=== PATIENT | female | born 2000 | race Caucasian/White ===

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

== ENCOUNTER → 2021-10-19 | Outpatient (CLI) | payer BC ==
--- NOTE | 2021-10-19 12:09 | US ---
EXAMINATION TYPE: US abdomen limited DATE OF EXAM: 10/19/2021 COMPARISON: NONE CLINICAL HISTORY: R10.13 Epigastric pain. EXAM MEASUREMENTS: Liver Length: 12.3 cm Gallbladder Wall: Surgically absent CBD: 0.4 cm Right Kidney: 8.9 x 4.3 x 4.6 cm Pancreas: visualized portions wnl Liver: wnl Gallbladder: No stones seen CBD: wnl Right Kidney: No hydronephrosis or masses seen Visualized portion of pancreas is unremarkable. Visualized portion of liver appears within normal baumann its. No right-sided hydronephrosis. Gallbladder surgically absent. No biliary dilatation is seen. IMPRESSION: Unremarkable study.
== END | disposition home or self-care (01) ==
LOC: RADUSWWP 09:19
PROVIDERS: ATTEND Family Medicine
DX: R10.13 Epigastric pain (principal)
CPT/HCPCS: 76705

== ENCOUNTER 2023-07-10 03:46 | Emergency (ER) | payer BC, OTHER ==
[2023-07-10 05:08] LABS: Basophils % (A) 0 %; Eosinophils % (A) 0 %; HGB 15.5 gm/dL (11.4-16.0); Lymphocytes # (A) 0.6 k/uL (1.0-4.8); Lymphocytes % (A) 4 %; MCH 30.3 pg (25.0-35.0); MCV 91.8 fL (80.0-100.0); Mean Platelet Volume 8.2; Monocytes # (A) 0.5 k/uL (0-1.0); Monocytes % (A) 3 %; Neutrophils % (A) 92 %; Platelet Count 240 k/uL (150-450); RBC 5.12 m/uL (3.80-5.40); RDW 12.2 % (11.5-15.5); WBC 15.2 k/uL (3.8-10.6)
[2023-07-10 05:20] LABS: ALT 17 U/L (4-34); AST 18 U/L (14-36); African American GFR (CKD) >90 (>60 ml/min/1.73 sqM); Albumin 4.8 g/dL (3.5-5.0); Alkaline Phosphatase 65 U/L (38-126); Amylase 54 U/L (30-110); Anion Gap 9 mmol/L; Blood Urea Nitrogen 17 mg/dL (7-17); Calcium 9.3 mg/dL (8.4-10.2); Carbon Dioxide 23 mmol/L (22-30); Chloride 106 mmol/L (98-107); Glucose 145 mg/dL (74-99); Lipase 78 U/L (23-300); Non-African American GFR(CKD) >90 (>60 ml/min/1.73 sqM); Potassium 4.3 mmol/L (3.5-5.1); Sodium 138 mmol/L (137-145); Total Bilirubin 0.9 mg/dL (0.2-1.3)
[2023-07-10 05:28] LABS: Amorphous Sediment,Urine Occasional /hpf; Appearance,Urine Cloudy (Clear); Bacteria,Urine Many /hpf; Bilirubin,Urine Negative (Negative); Blood,Urine Trace (Negative); Color,Urine Yellow; Glucose,Urine (UA) Negative (Negative); Hyaline Casts,Urine 10 /lpf (0-2); Ketones,Urine Trace (Negative); Leukocyte Esterase,Urine Large (Negative); Mucus,Urine Many /hpf; Nitrite,Urine Negative (Negative); PH, Urine 5.5 (5.0-8.0); Protein,Urine 1+ (Negative); RBC,Urine 5 /hpf (0-5); Specific Gravity,Urine 1.036 (1.001-1.035); Squamous Epithelial Cell,Urine 33 /hpf (0-4); Urobilinogen,Urine <2.0 mg/dL (<2.0); WBC,Urine 64 /hpf (0-5)
[2023-07-10] MEDS ORDERED: SODIUM CHLORIDE 0.9% 1,000 ML IV STA ×2 (06:05→07:56)
[2023-07-10] MEDS ORDERED: ONDANSETRON 4 MG/2 ML VIAL IVP STA (06:05)
[2023-07-10] MEDS ORDERED: FAMOTIDINE 20 MG/2 ML VIAL IV STA (06:11)
--- NOTE | 2023-07-10 06:18 | ED ---
Nausea/Vomiting/Diarrhea HPI - General Chief complaint: Nausea/Vomiting/Diarrhea Stated complaint: VOMITING Time Seen by Provider: 07/10/23 05:58 Source: patient, family, RN notes reviewed Mode of arrival: ambulatory Limitations: no limitations - History of Present Illness Initial comments: This is a 22 year old female who presents to the emergency department for nausea, vomiting, and abdominal pain. Symptoms began with generalized abdominal pain last night, and she has since had multiple episodes of nausea and vomiting. States that this has caused her to become weak and she subsequently passed out this morning. Denies hitting her head in the process. Denies any urinary symptoms, diarrhea, or constipation. Reports a history of iron deficiency anemia and wonders if this is causing her weakness as well. Denies any sick contacts. She has not measured any fevers, but states that she does feel hot. MD complaint: nausea, vomiting, abdominal pain - Related Data Home Medications Medication Instructions Recorded Confirmed Cetirizine HCl [Zyrtec] 10 mg PO DAILY 09/01/20 09/17/20 Ergocalciferol (Vitamin D2) 50 mcg PO DAILY 09/01/20 09/17/20 [Vitamin D2 (2000 Iu)] Fluticasone Nasal [place] [Flonase 2 spr EA NOSTRIL DAILY 09/01/20 09/17/20 Nasal [place]] Multivitamins, Thera [Multivitamin 1 tab PO DAILY 09/01/20 09/17/20 (formulary)] Previous Rx's Medication Instructions Recorded Acetaminophen Tab [Tylenol] 650 mg PO Q6H #30 tab 09/21/20 Docusate [Colace] 100 mg PO BID #20 capsule 09/21/20 Ibuprofen [Motrin] 600 mg PO Q6HR PRN #40 tab 09/21/20 oxyCODONE HCL [OxyIR] 5 mg PO Q6H PRN 3 Days #10 tab 09/21/20 Meclizine [Antivert] 25 mg PO TID PRN #15 tab 11/03/21 Cefpodoxime Proxetil [Vantin] 100 mg PO Q12HR 7 Days #14 tab 07/10/23 Ondansetron Odt [Zofran Odt] 4 mg PO Q8HR PRN #15 tab 07/10/23 Allergies Allergy/AdvReac Type Severity Reaction Status Date / Time ibuprofen AdvReac Mild Itching Verified 07/10/23 04:39 around mouth- still takes Review of Systems ROS Statement: Those systems with pertinent positive or pertinent negative responses have been documented in the HPI. ROS Other: All systems not noted in ROS Statement are negative. Past Medical History Past Medical History: GERD/Reflux Additional Past Medical History / Comment(s): HX LOW IRON, ABD PAIN History of Any Multi-Drug Resistant Organisms: None Reported Past Surgical History: No Surgical Hx Reported, Cholecystectomy Additional Past Surgical History / Comment(s): egd Past Anesthesia/Blood Transfusion Reactions: No Reported Reaction, Motion Sickness Past Psychological History: No Psychological Hx Reported Smoking Status: Never smoker Past Alcohol Use History: None Reported Past Drug Use History: None Reported - Past Family History Mother Family Medical History: No Reported History General Exam Limitations: no limitations General appearance: alert, in distress Head exam: Present: atraumatic, normocephalic, normal inspection Respiratory exam: Present: normal lung sounds bilaterally. Absent: respiratory distress, wheezes, rales, rhonchi, stridor Cardiovascular Exam: Present: regular rate, normal rhythm, normal heart sounds. Absent: systolic murmur, diastolic murmur, rubs, gallop, clicks GI/Abdominal exam: Present: soft, tenderness (generalized), normal bowel sounds. Absent: distended Neurological exam: Present: alert, oriented X3, CN II-XII intact Psychiatric exam: Present: normal affect, normal mood Skin exam: Present: warm, dry, intact, normal color. Absent: rash Course Vital Signs 07/10/23 07/10/23 07/10/23 04:35 06:01 06:05 Temperature 98 F Pulse Rate 95 55 L Respiratory 18 16 Rate Blood Pressure 85/62 79/61 98/67 O2 Sat by Pulse 100 98 Oximetry 07/10/23 07/10/23 08:11 09:53 Temperature 98.6 F Pulse Rate 71 77 Respiratory 18 18 Rate Blood Pressure 90/56 102/68 O2 Sat by Pulse 100 Oximetry Medical Decision Making - Medical Decision Making This is a 22-year-old female who presents to the emergency department for abdominal pain, nausea, and vomiting. Was pt. sent in by a medical professional or institution? @ -No Did you speak to anyone other than the patient for history? @ -No Did you review nursing and triage notes? @ -Yes, and I agree, it is accurate with regards to the patient's symptoms. Were old charts reviewed? @ -No Differential Diagnosis? @ -Differential Nausea and Vomiting: Gastroenteritis, cholecystitis, appendicitis, pancreatitis, migraine, benign positional vertigo, food borne illness, pyelonephritis, irritable bowel syndrome, influenza, Covid, GERD, incarcerated hernia, intestinal obstruction, this is not meant to be an all-inclusive list. EKG interpreted by me (3pts min.)? @ -Not obtained X-rays interpreted by me (1pt min.)? @ -Not obtained CT interpreted by me (1pt min.)? @ -CT scan of the abdomen and pelvis obtained. My interpretation identifies no evidence of a ureteral calculus or free air. U/S interpreted by me (1pt. min.)? @ -Not obtained What testing was considered but not performed? (CT, X-rays, U/S, labs)? Why? @ -None What meds were considered but not given? Why? @ -None Did you discuss the management of the patient with other professionals? @ -No Did you reconcile home meds? @ -No Was smoking cessation discussed for >3mins.? @ -No Was critical care preformed (if so, how long)? @ -No Were there social determinants of health that impacted care today? How? (Homelessness, low income, unemployed, alcoholism, drug addiction, transportation, low edu. Level, literacy, decrease access to med. care, skilled nursing, rehab)? @ -No Was there de-escalation of care discussed even if they declined? (Discuss DNR or withdrawal of care, Hospice)? @ -No What co-morbidities impacted this encounter? (DM, HTN, Smoking, COPD, CAD, Cancer, CVA, Hep., AIDS, mental health diagnosis, sleep apnea, morbid obesity)? @ -Anemia Was patient admitted / discharged? @ -Discharged. Lab work obtained revealing leukocytosis and was otherwise unremarkable. Covid, influenza, RSV testing were negative. While her urinalysis was contaminated, it was also consistent with infection and had many bacteria present. Urine sent for culture. Computed tomography scan of the abdomen and pelvis was obtained as well due to her abdominal pain. This demonstrated findings suggestive of mild uncomplicated colitis versus product of poor distention. Her symptoms were well controlled with IV fluids, Zofran, and famotidine. She was given an initial dose of ceftriaxone in the emergency department for UTI. The patient's symptoms were well controlled, and she felt stable for discharge home. She was tolerating oral intake at the time of discharge. Prescription for Zofran and cefpodoxime provided with dosing instru ctions reviewed. She is also advised to slowly advance her diet as tolerated and remain well-hydrated. Undiagnosed new problem with uncertain prognosis? @ -None Drug Therapy requiring intensive monitoring for toxicity (Heparin, Nitro, Insulin, Cardizem)? @ -None Were any procedures done? @ -None Diagnosis/symptom? @ -Nausea/vomiting, UTI Acute, or Chronic, or Acute on Chronic? @ -Acute Uncomplicated (without systemic symptoms) or Complicated (systemic symptoms)? @ -Uncomplicated Side effects of treatment? @ -None Exacerbation, Progression, or Severe Exacerbation] @ -Not applicable Poses a threat to life or bodily function? @ -No Return precautions reviewed in depth, the patient is instructed to return to the emergency department with any new, worsening, or concerning symptoms. Patient verbalized understanding. This case was discussed in detail with the attending ED physician, Dr. Romero. Presentation, findings, and treatment plan discussed in detail as well. - Lab Data Result diagrams: 07/10/23 04:43 07/10/23 04:43 Lab Results 07/10/23 07/10/23 07/10/23 Range/Units 04:43 04:43 04:43 WBC 15.2 H (3.8-10.6) k/uL RBC 5.12 (3.80-5.40) m/uL Hgb 15.5 (11.4-16.0) gm/dL Hct 47.0 H (34.0-46.0) % MCV 91.8 (80.0-100.0) fL MCH 30.3 (25.0-35.0) pg MCHC 33.0 (31.0-37.0) g/dL RDW 12.2 (11.5-15.5) % Plt Count 240 (150-450) k/uL MPV 8.2 Neutrophils % 92 % Lymphocytes % 4 % Monocytes % 3 % Eosinophils % 0 % Basophils % 0 % Neutrophils # 14.0 H (1.3-7.7) k/uL Lymphocytes # 0.6 L (1.0-4.8) k/uL Monocytes # 0.5 (0-1.0) k/uL Eosinophils # 0.0 (0-0.7) k/uL Basophils # 0.0 (0-0.2) k/uL Sodium 138 (137-145) mmol/L Potassium 4.3 (3.5-5.1) mmol/L Chloride 106 (98-107) mmol/L Carbon Dioxide 23 (22-30) mmol/L Anion Gap 9 mmol/L BUN 17 (7-17) mg/dL Creatinine 0.68 (0.52-1.04) mg/dL Est GFR (CKD-EPI)AfAm >90 (>60 ml/min/1.73 sqM) Est GFR (CKD-EPI)NonAf >90 (>60 ml/min/1.73 sqM) Glucose 145 H (74-99) mg/dL Calcium 9.3 (8.4-10.2) mg/dL Total Bilirubin 0.9 (0.2-1.3) mg/dL AST 18 (14-36) U/L ALT 17 (4-34) U/L Alkaline Phosphatase 65 (38-126) U/L Total Protein 8.0 (6.3-8.2) g/dL Albumin 4.8 (3.5-5.0) g/dL Amylase 54 (30-110) U/L Lipase 78 (23-300) U/L HCG, Qual Urine Color Yellow Urine Appearance Cloudy H (Clear) Urine pH 5.5 (5.0-8.0) Ur Specific [place] 1.036 H (1.001-1.035) Urine Protein 1+ H (Negative) Urine Glucose (UA) Negative (Negative) Urine Ketones Trace H (Negative) Urine Blood Trace H (Negative) Urine Nitrite Negative (Negative) Urine Bilirubin Negative (Negative) Urine Urobilinogen <2.0 (<2.0) mg/dL Ur Leukocyte Esterase Large H (Negative) Urine RBC 5 (0-5) /hpf Urine WBC 64 H (0-5) /hpf Ur Squamous Epith Cells 33 H (0-4) /hpf Amorphous Sediment Occasional H (None) /hpf Urine Bacteria Many H (None) /hpf Hyaline Casts 10 H (0-2) /lpf Urine Mucus Many H (None) /hpf Influenza Type A (PCR) (Not Detectd) Influenza Type B (PCR) (Not Detectd) RSV (PCR) (Not Detectd) SARS-CoV-2 (PCR) (Not Detectd) 07/10/23 07/10/23 Range/Units 04:43 07:35 WBC (3.8-10.6) k/uL RBC (3.80-5.40) m/uL Hgb (11.4-16.0) gm/dL Hct (34.0-46.0) % MCV (80.0-100.0) fL MCH (25.0-35.0) pg MCHC (31.0-37.0) g/dL RDW (11.5-15.5) % Plt Count (150-450) k/uL MPV Neutrophils % % Lymphocytes % % Monocytes % % Eosinophils % % Basophils % % Neutrophils # (1.3-7.7) k/uL Lymphocytes # (1.0-4.8) k/uL Monocytes # (0-1.0) k/uL Eosinophils # (0-0.7) k/uL Basophils # (0-0.2) k/uL Sodium (137-145) mmol/L Potassium (3.5-5.1) mmol/L Chloride (98-107) mmol/L Carbon Dioxide (22-30) mmol/L Anion Gap mmol/L BUN (7-17) mg/dL Creatinine (0.52-1.04) mg/dL Est GFR (CKD-EPI)AfAm (>60 ml/min/1.73 sqM) Est GFR (CKD-EPI)NonAf (>60 ml/min/1.73 sqM) Glucose (74-99) mg/dL Calcium (8.4-10.2) mg/dL Total Bilirubin (0.2-1.3) mg/dL AST (14-36) U/L ALT (4-34) U/L Alkaline Phosphatase (38-126) U/L Total Protein (6.3-8.2) g/dL Albumin (3.5-5.0) g/dL Amylase (30-110) U/L Lipase (23-300) U/L HCG, Qual Not Detected Urine Color Urine Appearance (Clear) Urine pH (5.0-8.0) Ur Specific [place] (1.001-1.035) Urine Protein (Negative) Urine Glucose (UA) (Negative) Urine Ketones (Negative) Urine Blood (Negative) Urine Nitrite (Negative) Urine Bilirubin (Negative) Urine Urobilinogen (<2.0) mg/dL Ur Leukocyte Esterase (Negative) Urine RBC (0-5) /hpf Urine WBC (0-5) /hpf Ur Squamous Epith Cells (0-4) /hpf Amorphous Sediment (None) /hpf Urine Bacteria (None) /hpf Hyaline Casts (0-2) /lpf Urine Mucus (None) /hpf Influenza Type A (PCR) Not Detected (Not Detectd) Influenza Type B (PCR) Not Detected (Not Detectd) RSV (PCR) Not Detected (Not Detectd) SARS-CoV-2 (PCR) Not Detected (Not Detectd) - Radiology Data Radiology results: report reviewed, image reviewed Disposition Clinical Impression: Nausea and vomiting, UTI (urinary tract infection) Disposition: HOME SELF-CARE Instructions (If sedation given, give patient instructions): Urinary Tract Infection in Women (ED), Acute Nausea and Vomiting (ED) Additional Instructions: Return to the emergency department with any new, worsening, or concerning symptoms. Take the antibiotic as prescribed for 7 days. You can take the Zofran up to every 8 hours as needed for nausea and vomiting. Slowly advance your diet as tolerated and remain well-hydrated. Follow up with your primary care provider in 1-2 days. Prescriptions: Cefpodoxime Proxetil [Vantin] 100 mg PO Q12HR 7 Days #14 tab Ondansetron Odt [Zofran Odt] 4 mg PO Q8HR PRN #15 tab PRN Reason: Nausea And Vomiting Is patient prescribed a controlled substance at d/c from ED?: No Referrals: Lora Villalobos DO [Primary Care Provider] - 1-2 days Time of Disposition: 09:35
--- NOTE | 2023-07-10 06:52 | CT ---
EXAMINATION TYPE: CT abdomen pelvis w con DATE OF EXAM: 07/10/2023 HISTORY: abd pain acute nonlocalized CT DLP: 398.8mGycm Automated Exposure Control for Dose Reduction was Utilized. CONTRAST: CT scan of the abdomen and pelvis is performed with IV Contrast, patient injected with 100 mL of Isov ue 300. COMPARISON: None FINDINGS: LUNG BASES: Pectus excavatum is seen. LIVER/GB: Contracted gallbladder. PANCREAS: No significant abnormality is seen. SPLEEN: No significant abnormality is seen. ADRENALS: No significant abnormality is seen. KIDNEYS: No significant abnormality is seen. BOWEL: No significant abnormality is seen. UTERUS/ADNEXA: Anteverted uterus projects to left of midline. Ring-enhancing 1.5 cm left ovarian thin -walled cysts likely reflects a corpus luteal cyst. No abnormal small or large bowel dilatation subop timal evaluation without enteric contrast. Mild to moderate wall thickening in the transverse and lef t colon is seen. LYMPH NODES: No greater than 1cm abdominal or pelvic lymph nodes are appreciated. OSSEOUS STRUCTURES: No significant abnormality is seen. OTHER: No significant additional abnormality is seen. IMPRESSION: Possible mild uncomplicated colitis versus product of poor distention involving left and transverse colon. Correlate clinically. No suspicious acute finding otherwise identified.
[2023-07-10] MEDS ORDERED: cefTRIAXone IN SWFI 1,000 MG/10 ML SYRINGE IVP STA (07:56)
[2023-07-10 08:16] VITALS: RESP 18
[2023-07-10] MEDS ORDERED: MORPHINE SULFATE 2 MG/ML SYRINGE IVP PRN (09:13)
[2023-07-10] MEDS ORDERED: PANTOPRAZOLE 40 MG/10 ML VIAL IVP STA (09:13)
[2023-07-10] MEDS ORDERED: traMADol 50 MG STARTER PACK 3 TAB BTL PO STA (09:16)
[2023-07-10] MEDS ORDERED: ONDANSETRON 4 MG ODT STARTER PACK 2 TAB BTL PO STA (09:16)
[2023-07-10 09:54] VITALS: BP 102/68; PULSE 77; TEMP 98.6
== END 2023-07-10 09:53 | disposition home or self-care (01) ==
LOC: EC 03:46
DX: N39.0 Urinary tract infection, site not specified (principal); Z88.6 Allergy status to analgesic agent; Z20.822 Contact with and (suspected) exposure to COVID-19
CPT/HCPCS: 36415; 93005; 80053; 82150; 83690; 85025; 81001; 84703; 87086; 87636; 74177; 99284; 96374; 96375 ×3; 96361 ×4; J2405; J0696; J3490; S0119; C9113; Q9967

== ENCOUNTER 2024-06-20 14:17 | Emergency (ER) | payer OTHER ==
[2024-06-20 14:32] VITALS: RESP 18; TEMP 98.8
--- NOTE | 2024-06-20 15:30 | ED ---
General Adult HPI - General Chief complaint: Headache Stated complaint: Headache Time Seen by Provider: 06/20/24 15:21 Source: patient, RN notes reviewed Mode of arrival: ambulatory Limitations: no limitations - History of Present Illness Initial comments: 23-year-old female presenting for right ear pain 1 hour ago. States she was at work when suddenly she began to experience a sharp pain radiating from her right ear to her right jaw. She then reports her tongue felt tingly for several minutes. Pain was worse with opening mouth. Reports symptoms have completely resolved. Denies any nasal congestion, cough, sore throat, fever, chest pain, shortness of breath. No difficulty swallowing or breathing. Has never had this before. No significant past medical history. - Related Data Home Medications Medication Instructions Recorded Confirmed Cetirizine HCl [Zyrtec] 10 mg PO DAILY 09/01/20 09/17/20 Ergocalciferol (Vitamin D2) 50 mcg PO DAILY 09/01/20 09/17/20 [Vitamin D2 (2000 Iu)] Fluticasone Nasal [place] [Flonase 2 spr EA NOSTRIL DAILY 09/01/20 09/17/20 Nasal [place]] Multivitamins, Thera [Multivitamin 1 tab PO DAILY 09/01/20 09/17/20 (formulary)] Previous Rx's Medication Instructions Recorded Acetaminophen Tab [Tylenol] 650 mg PO Q6H #30 tab 09/21/20 Docusate [Colace] 100 mg PO BID #20 capsule 09/21/20 Ibuprofen [Motrin] 600 mg PO Q6HR PRN #40 tab 09/21/20 oxyCODONE HCL [OxyIR] 5 mg PO Q6H PRN 3 Days #10 tab 09/21/20 Meclizine [Antivert] 25 mg PO TID PRN #15 tab 11/03/21 Cefpodoxime Proxetil [Vantin] 100 mg PO Q12HR 7 Days #14 tab 07/10/23 Ondansetron Odt [Zofran Odt] 4 mg PO Q8HR PRN #15 tab 07/10/23 Allergies Allergy/AdvReac Type Severity Reaction Status Date / Time ibuprofen AdvReac Mild Itching Verified 06/20/24 14:29 around mouth- still takes Review of Systems ROS Statement: Those systems with pertinent positive or pertinent negative responses have been documented in the HPI. ROS Other: All systems not noted in ROS Statement are negative. Past Medical History Past Medical History: GERD/Reflux Additional Past Medical History / Comment(s): HX LOW IRON, ABD PAIN History of Any Multi-Drug Resistant Organisms: None Reported Past Surgical History: No Surgical Hx Reported, Cholecystectomy Additional Past Surgical History / Comment(s): egd Past Anesthesia/Blood Transfusion Reactions: No Reported Reaction, Motion Sickness Past Psychological History: No Psychological Hx Reported Smoking Status: Never smoker Past Alcohol Use History: None Reported Past Drug Use History: None Reported - Past Family History Mother Family Medical History: No Reported History General Exam Limitations: no limitations General appearance: alert, in no apparent distress Head exam: Present: atraumatic, normocephalic, normal inspection Eye exam: Present: normal appearance, PERRL, EOMI. Absent: scleral icterus, conjunctival injection, periorbital swelling ENT exam: Present: normal exam, normal oropharynx, mucous membranes moist, TM's normal bilaterally Neck exam: Present: normal inspection. Absent: tenderness, meningismus, lymphadenopathy Respiratory exam: Present: normal lung sounds bilaterally. Absent: respiratory distress, wheezes, rales, rhonchi, stridor Cardiovascular Exam: Present: regular rate, normal rhythm, normal heart sounds. Absent: systolic murmur, diastolic murmur, rubs, gallop, clicks Neurological exam: Present: alert, oriented X3 Psychiatric exam: Present: normal affect, normal mood Skin exam: Present: warm, dry, intact, normal color. Absent: rash Course Vital Signs 06/20/24 06/20/24 14:29 17:21 Temperature 98.8 F 98.8 F Pulse Rate 96 91 Respiratory 18 18 Rate Blood Pressure 121/85 115/81 O2 Sat by Pulse 100 100 Oximetry Medical Decision Making - Medical Decision Making Was pt. sent in by a medical professional or institution (, PA, SURGICAL SCRUB TECHNICIAN, urgent care, hospital, or fpc...) When possible be specific @ -No Did you speak to anyone other than the patient for history (EMS, parent, family, police, friend...)? What history was obtained from this source @ -No Did you review nursing and triage notes (agree or disagree)? Why? @ -I reviewed and agree with nursing and triage notes Were old charts reviewed (outside hosp., previous admission, EMS record, old EKG, old radiological studies, urgent care reports/EKG's, fpc records)? Report findings @ -No old charts were reviewed Differential Diagnosis (chest pain, altered mental status, abdominal pain women, abdominal pain men, vaginal bleeding, weakness, fever, dyspnea, syncope, headache, dizziness, GI bleed, back pain, seizure, CVA, palpatations, mental health, musculoskeletal)? @ -Differential Musculoskeletal Otitis media, TMJ, muscular strain, contusion, ligament sprain, fracture, arthritis, septic arthritis, bursitis, cellulitis, muscle spasm, nerve compression, DVT, arterial occlusion, herpes zoster, electrolyte abnormality, tumor.... This is not meant to be in all inclusive list EKG interpreted by me (3pts min.). @ -None X-rays interpreted by me (1pt min.). @ -None done CT interpreted by me (1pt min.). @ -None done U/S interpreted by me (1pt. min.). @ -None done What testing was considered but not performed or refused? (CT, X-rays, U/S, labs)? Why? @ -None What meds were considered but not given or refused? Why? @ -None Did you discuss the management of the patient with other professionals (professionals i.e. , PA, SURGICAL SCRUB TECHNICIAN, lab, RT, psych nurse, licensed clinical social worker, culled fruit packer, teacher, food safety officer, case hardener)? Give summary @ -No Was smoking cessation discussed for >3mins.? @ -No Was critical care preformed (if so, how long)? @ -No Were there social determinants of health that impacted care today? How? (Homelessness, low income, unemployed, alcoholism, drug addiction, transportation, low edu. Level, literacy, decrease access to med. care, alf, rehab)? @ -No Was there de-escalation of care discussed even if they declined (Discuss DNR or withdrawal of care, Hospice)? DNR status @ -No What co-morbidities impacted this encounter? (DM, HTN, Smoking, COPD, CAD, Cancer, CVA, ARF, Chemo, Hep., AIDS, mental health diagnosis, sleep apnea, morbid obesity)? @ -None Was patient admitted / discharged? Hospital course, mention meds given and route, prescriptions, significant lab abnormalities, going to OR and other pertinent info. @ -Discharge. This is a 23-year-old female presenting with brief episode of right ear pain radiating to the right jaw. Pain has resolved. No sign of bacterial infection. Neuro examination is unremarkable. No red flag symptoms. Patient was provided with analgesics and reports improvement of symptoms. There is no sign of emergent etiology causing symptoms today. Appropriate return precautions and supportive care discussed. Case was discussed with my ED attending Dr. Larios Undiagnosed new problem with uncertain prognosis? @ -No Drug Therapy requiring intensive monitoring for toxicity (Heparin, Nitro, Insulin, Cardizem)? @ -No Were any procedures done? @ -No Diagnosis/symptom? @ -Jaw spasm Acute, or Chronic, or Acute on Chronic? @ -Acute Uncomplicated (without systemic symptoms) or Complicated (systemic symptoms)? @ -Uncomplicated Side effects of treatment? @ -No Exacerbation, Progression, or Severe Exacerbation? @ -No Poses a threat to life or bodily function? How? (Chest pain, [place], [place], pneumonia, PE, COPD, DKA, ARF, appy, cholecystitis, CVA, Diverticulitis, Homicidal, Suicidal, threat to staff... and all critical care pts) @ -No Disposition Clinical Impression: Facial spasm Disposition: HOME SELF-CARE Condition: Stable Additional Instructions: Take antihistamine (Claritin or Zyrtec) and Tylenol as discussed. Please return to the Emergency Department if symptoms worsen or any other concerns. Is patient prescribed a controlled substance at d/c from ED?: No Referrals: Lora Villalobos DO [Primary Care Provider] - 1-2 days Time of Disposition: 16:21
[2024-06-20] MEDS: ACETAMINOPHEN TAB 325 MG TAB PO STA (15:39)
[2024-06-20 17:23] VITALS: BP 115/81; PULSE 91
== END 2024-06-20 17:23 | disposition home or self-care (01) ==
LOC: EC 14:17
DX: G51.31 Clonic hemifacial spasm, right (principal); Z88.6 Allergy status to analgesic agent
CPT/HCPCS: 99283

== ENCOUNTER 2024-10-21 15:21 | Emergency (ER) | payer OTHER ==
[2024-10-21 15:27] VITALS: RESP 18
[2024-10-21] MEDS: BUTALB/APAP/CAFF 50-325-40MG TAB PO STA (16:50)
--- NOTE | 2024-10-21 16:57 | ED ---
Headache HPI - General Chief Complaint: Headache Stated Complaint: Headache,Dizziness Time Seen by Provider: 10/21/24 15:28 Mode of arrival: ambulatory Limitations: no limitations - Related Data Home Medications Medication Instructions Recorded Confirmed Cetirizine HCl [Zyrtec] 10 mg PO DAILY 09/01/20 09/17/20 Ergocalciferol (Vitamin D2) 50 mcg PO DAILY 09/01/20 09/17/20 [Vitamin D2 (2000 Iu)] Fluticasone Nasal [place] [Flonase 2 spr EA NOSTRIL DAILY 09/01/20 09/17/20 Nasal [place]] Multivitamins, Thera [Multivitamin 1 tab PO DAILY 09/01/20 09/17/20 (formulary)] Previous Rx's Medication Instructions Recorded Acetaminophen Tab [Tylenol] 650 mg PO Q6H #30 tab 09/21/20 Docusate [Colace] 100 mg PO BID #20 capsule 09/21/20 Ibuprofen [Motrin] 600 mg PO Q6HR PRN #40 tab 09/21/20 oxyCODONE HCL [OxyIR] 5 mg PO Q6H PRN 3 Days #10 tab 09/21/20 Meclizine [Antivert] 25 mg PO TID PRN #15 tab 11/03/21 Cefpodoxime Proxetil [Vantin] 100 mg PO Q12HR 7 Days #14 tab 07/10/23 Ondansetron Odt [Zofran Odt] 4 mg PO Q8HR PRN #15 tab 07/10/23 Butalb/Acetaminophen/Caffeine 1 - 2 cap PO Q4HR PRN #30 cap 10/21/24 [Fioricet 50-300-40 mg Capsule] Allergies Allergy/AdvReac Type Severity Reaction Status Date / Time ibuprofen AdvReac Mild Itching Verified 10/21/24 15:27 around mouth- still takes Review of Systems ROS Statement: Those systems with pertinent positive or pertinent negative responses have been documented in the HPI. ROS Other: All systems not noted in ROS Statement are negative. Past Medical History Past Medical History: GERD/Reflux Additional Past Medical History / Comment(s): HX LOW IRON, ABD PAIN History of Any Multi-Drug Resistant Organisms: None Reported Past Surgical History: No Surgical Hx Reported, Cholecystectomy Additional Past Surgical History / Comment(s): egd Past Anesthesia/Blood Transfusion Reactions: No Reported Reaction, Motion Sickness Past Psychological History: No Psychological Hx Reported Smoking Status: Never smoker Past Alcohol Use History: None Reported Past Drug Use History: None Reported - Past Family History Mother Family Medical History: No Reported History General Exam Limitations: no limitations Course Vital Signs 10/21/24 15:25 Temperature 98.7 F Pulse Rate 100 Respiratory 18 Rate Blood Pressure 122/80 O2 Sat by Pulse 98 Oximetry Medical Decision Making - Medical Decision Making Was pt. sent in by a medical professional or institution (FESTUS Hurt, PHARMACIST ASSISTANT, urgent care, hospital, or intermediate...) When possible be specific @ -No Did you speak to anyone other than the patient for history (EMS, parent, family, police, friend...)? What history was obtained from this source @ -No Did you review nursing and triage notes (agree or disagree)? Why? @ -I reviewed and agree with nursing and triage notes Were old charts reviewed (outside hosp., previous admission, EMS record, old EKG, old radiological studies, urgent care reports/EKG's, intermediate records)? Report findings @ -No old charts were reviewed Differential Diagnosis? @ -Differential Headache: Migraine, tension, cluster, carbon monoxide, central venous thrombosis, pension karma temporal arteritis, acute closure glaucoma, intercranial hemorrhage, mastoiditis, sinusitis, head injury, this is not meant to be an all-inclusive list. EKG interpreted by me (3pts min.). @ -As above X-rays interpreted by me (1pt min.). @ -None done CT interpreted by me (1pt min.). @ -CT brain was unremarkable. U/S interpreted by me (1pt. min.). @ -None done What testing was considered but not performed or refused? (CT, X-rays, U/S, labs)? Why? @ -None What meds were considered but not given or refused? Why? @ -None Did you discuss the management of the patient with other professionals (professionals i.e. FESTUS Hurt, PHARMACIST ASSISTANT, lab, RT, psych nurse, social media coordinator, environmental engineering technician, teacher, rating officer, classification case manager)? Give summary @ -Case was discussed with ED attending Dr. Sandra. Was smoking cessation discussed for >3mins.? @ -No Was critical care preformed (if so, how long)? @ -No Were there social determinants of health that impacted care today? How? (Homelessness, low income, unemployed, alcoholism, drug addiction, trans portation, low edu. Level, literacy, decrease access to med. care, residential, rehab)? @ -No Was there de-escalation of care discussed even if they declined (Discuss DNR or withdrawal of care, Hospice)? DNR status @ -No What co-morbidities impacted this encounter? (DM, HTN, Smoking, COPD, CAD, Cancer, CVA, ARF, Chemo, Hep., AIDS, mental health diagnosis, sleep apnea, morbid obesity)? @ -None Was patient admitted / discharged? Hospital course, mention meds given and route, prescriptions, significant lab abnormalities, going to OR and other pertinent info. @ -Patient received 1 dose of Fioricet and had some mild improvement. Patient will be discharged home with self-care. Patient to follow-up with PCP in 1 to 2 days. Undiagnosed new problem with uncertain prognosis? @ -No Drug Therapy requiring intensive monitoring for toxicity (Heparin, Nitro, Insulin, Cardizem)? @ -No Were any procedures done? @ -No Diagnosis/symptom? @ -Headache Acute, or Chronic, or Acute on Chronic? @ -Acute Uncomplicated (without systemic symptoms) or Complicated (systemic symptoms)? @ -Default Side effects of treatment? @ -No Exacerbation, Progression, or Severe Exacerbation? @ -No Poses a threat to life or bodily function? How? (Chest pain, [place], [place], pneumonia, PE, COPD, DKA, ARF, appy, cholecystitis, CVA, Diverticulitis, Homicidal, Suicidal, threat to staff... and all critical care pts) @ -No Disposition Clinical Impression: Headache Disposition: HOME SELF-CARE Additional Instructions: Every disease is a spectrum and a small chance still exists that a serious condition could develop, for this reason, please monitor yourself closely for new, changing or worsening symptoms, symptoms that persist beyond 48 hours, any further episodes of vomiting blood, difficulty in breathing, severe abdominal pain, symptoms that did not improve in the next 48 hours, black or bloody stools, fever, inability to tolerate/keep down fluids or your medications, inability to follow up with outpatient providers as instructed and should you experience these symptoms or should you have any further concerns for your wellbeing please return to the ED or call 911 immediately. PLEASE take prescriptions as listed in discharge instructions. PLEASE call your primary care physician as soon as possible to arrange / discuss plan for followup appointment. Appointment in the next 1-3 days is strongly encouraged if possible. PLEASE let us know here before you leave if there is anything further we can do to be of any assistance. Take care and feel Better! Prescriptions: Butalb/Acetaminophen/Caffeine [Fioricet 50-300-40 mg Capsule] 1 - 2 cap PO Q4HR PRN #30 cap PRN Reason: Headache Is patient prescribed a controlled substance at d/c from ED?: No Referrals: Lora Villalobos DO [Primary Care Provider] - 1-2 days
--- NOTE | 2024-10-21 17:20 | CT ---
EXAMINATION TYPE: CT brain wo con CT DLP: 1127.4 mGycm, Automated exposure control for dose reduction was used. DATE OF EXAM: 10/21/2024 5:12 PM COMPARISON: None. CLINICAL INDICATION:Female, 23 years old with history of Headache, Chronic headache, dizziness TECHNIQUE: Brain: Multiple axial CT images of the brain were obtained without IV contrast. . Coronal and sagitta l reformats reviewed. FINDINGS: Brain: Extra-axial spaces: No abnormal extra-axial fluid collections. Ventricular system: Within normal limits Cerebral parenchyma: No acute intraparenchymal hemorrhage or mass effect. The grove-white junction is well differentiated. Cerebellum: Unremarkable. Mass effect: No evidence of midline shift. Intracranial vasculature: unremarkable Soft tissues: Normal. Calvarium/osseous structures: No depressed skull fracture. Paranasal sinuses and mastoid air cells: Clear Visualized orbits: Orbital contents are intact. IMPRESSION: No acute intracranial process. [facility], , 10/21/2024 5:18 PM
[2024-10-21 18:23] VITALS: BP 120/82; PULSE 92; TEMP 98.4
== END 2024-10-21 18:24 | disposition home or self-care (01) ==
LOC: EC 15:21
DX: R51.9 Headache, unspecified (principal); Z88.6 Allergy status to analgesic agent
CPT/HCPCS: 70450; 99284